=== PATIENT | female | born 1960 | race Asian ===

== ENCOUNTER 2018-07-26 10:51 | Emergency (ER) | payer BC ==
[2018-07-26 11:17] LABS: ADD MAN DIFF? NO
[2018-07-26 11:21] LABS: ADD UMIC NO; UR ASCORBIC ACID NEGATIVE (NEGATIVE); UR BILIRUBIN (Dip) NEGATIVE (NEGATIVE); UR BLOOD (Dip) NEGATIVE (NEGATIVE); UR CLARITY CLEAR (CLEAR); UR COLOR COLORLESS (YELLOW); UR GLUCOSE (Dip) NEGATIVE (NEGATIVE); UR KETONES (Dip) NEGATIVE (NEGATIVE); UR LEUKOCYTE ESTERASE (Dip) NEGATIVE Leu/ul (NEGATIVE); UR NITRITE (Dip) NEGATIVE (NEGATIVE); UR TOTAL PROTEIN (Dip) NEGATIVE (NEGATIVE); UR UROBILINOGEN (Dip) NEGATIVE (NEGATIVE)
[2018-07-26 11:22] LABS: BASOPHILS % 0.8 % (0.0-2.0); EOSINOPHILS # 0.1 10^3/ul (0.0-0.5); EOSINOPHILS % 1.6 % (0.0-7.0); HEMATOCRIT 39.1 % (37.0-47.0); HEMOGLOBIN 12.9 g/dl (12.0-16.0); LYMPHOCYTES % 27.8 % (15.0-51.0); MEAN CORPUSCULAR HEMOGLOBIN 31.2 pg (29.0-33.0); MEAN CORPUSCULAR VOLUME 94.4 fl (82.0-101.0); MEAN PLATELET VOLUME 9.7 fl (7.4-10.4); MONOCYTE # 0.4 10^3/ul (0.3-0.9); MONOCYTES % 11.1 % (0.0-11.0); NEUTROPHIL # 2.2 10^3/ul (1.6-7.5); NEUTROPHILS % 58.4 % (39.0-77.0); PLATELET COUNT 264 10^3/UL (140-415); RED BLOOD COUNT 4.14 10^6/ul (4.20-5.40)
[2018-07-26 11:22] LABS: WHITE BLOOD COUNT 3.7 10^3/ul (4.8-10.8)
[2018-07-26] MEDS: SOD CHLORIDE 0.9% 1,000 ML IV (11:26)
[2018-07-26] MEDS: LORAZEPAM 2 MG INJ IV (11:26)
[2018-07-26 11:39] LABS: INR 0.94; PROTIME 12.7 Sec (11.9-14.9)
[2018-07-26 11:43] LABS: ALANINE AMINOTRANSFERASE 39 IU/L (13-69); ALBUMIN 4.4 g/dl (3.3-4.9); ALBUMIN/GLOBULIN RATIO 1.15; ALKALINE PHOSPHATASE 68 IU/L (42-121); ANION GAP 15 (5-13); ASPARTATE AMINO TRANSFERASE 47 IU/L (15-46); BILIRUBIN,INDIRECT 0.5 mg/dl (0-1.1); BILIRUBIN,TOTAL 0.5 mg/dl (0.2-1.3); BLOOD UREA NITROGEN 12 mg/dl (7-20); CALCIUM 9.3 mg/dl (8.4-10.2); CARBON DIOXIDE 22 mmol/L (21-31); CHLORIDE 109 mmol/L (97-110); CREATINE KINASE 124 IU/L (23-200); D-DIMER 931.72 ng/ml (<460); Estimated GFR > 60 mL/min (>60); GLUCOSE 122 mg/dl (70-220); POTASSIUM 3.3 mmol/L (3.5-5.1); SODIUM 146 mmol/L (135-144); TOTAL PROTEIN 8.2 g/dl (6.1-8.1)
[2018-07-26 11:54] LABS: B-TYPE NATRIURETIC PEPTIDE 60 PG/ML (0-125); CK INDEX 0.3; CK-MB 0.42 ng/ml (0.0-2.4); TROPONIN-I < 0.012 ng/ml (0.000-0.120)
[2018-07-26] MEDS: POTASSIUM CHLORIDE (SR) 20 MEQ TAB PO (14:13)
[2018-07-26] MEDS: IOHEXOL 100 ML (14:46)
[2018-07-26] MEDS: SOD CHLORIDE 0.9% 100 ML (14:46)
== END 2018-07-26 15:50 | disposition home or self-care (01) ==
LOC: E/R 10:51
DX: F41.9 Anxiety disorder, unspecified (principal); R06.02 Shortness of breath; I10 Essential (primary) hypertension
CPT/HCPCS: 71045; 71275; 80053; 81003; 82550; 82553; 83880; 84484; 85025; 85378; 85610; 85730; 96374; 99285-25

== ENCOUNTER → 2018-09-25 | Outpatient (CLI) | payer BC | END | disposition home or self-care (01) | LOC: C/S 08:30 | DX: J84.10 Pulmonary fibrosis, unspecified (principal) | CPT/HCPCS: 71250 ==

== ENCOUNTER → 2018-09-25 | Outpatient (CLI) | payer BC ==
[2018-09-25] MEDS: METOPROLOL 5 MG INJ ×2 (09:03→09:33)
[2018-09-25] MEDS: NITROGLYCERIN AEROSOL (4.9 GM) (09:03)
[2018-09-25] MEDS: SOD CHLORIDE 0.9% 100 ML (10:01)
[2018-09-25] MEDS: IOHEXOL 100 ML (10:02)
== END | disposition home or self-care (01) ==
LOC: C/S 08:34
DX: R94.39 Abnormal result of other cardiovascular function study (principal); R06.02 Shortness of breath
CPT/HCPCS: 75571; 75574

== ENCOUNTER → 2018-10-17 | Outpatient (CLI) | payer BC | END | disposition home or self-care (01) | LOC: RAD 14:19 | DX: Z04.89 Encounter for examination and observation for other specified reasons (principal); Z91.81 History of falling; Z87.828 Personal history of other (healed) physical injury and trauma | CPT/HCPCS: 71100; 72100; 73510; 73560 ==